=== PATIENT | female | born 1945 | race Caucasian/White ===

== ENCOUNTER 2022-01-14 22:50 | Inpatient (IN) | payer MEDICARE ==
[~2022-01-14] VITALS: Ht 175.3 cm; Wt 154.2 kg
[2022-01-14] MEDS ORDERED: PIPERACILLIN/TAZOBACTAM 3.375 GM in SODIUM CHLORIDE 0.9% 50ML 50 ML IV STA (22:53)
[2022-01-14] MEDS ORDERED: Vancomycin IV 1 GM in SODIUM CHLORIDE 0.9% 250ML 250 ML IV STA (22:53)
[2022-01-14] MEDS ORDERED: SODIUM CHLORIDE 0.9% 1000ML 1,000 ML IV STA (22:55)
[2022-01-14 23:25] LABS: BASOPHILS # (AUTO) 0.1 (0.0-0.1); BASOPHILS % 0.3 % (0.0-1.0); EOSINOPHILS % 0.2 % (0.0-6.0); HEMOGLOBIN 11.6 g/dL (12.0-16.0); LYMPHOCYTES # (AUTO) 2.1 (1.0-3.2); LYMPHOCYTES % 12.6 % (18.0-39.1); MEAN CORPUSCULAR HEMOGLOBIN 27.6 pg (28-32); MEAN CORPUSCULAR HGB CONC 32.2 g/dL (31-35); MEAN CORPUSCULAR VOLUME 85.5 fL (81-99); MONOCYTES # (AUTO) 1.5 (0.2-0.8); MONOCYTES % 8.9 % (4.4-11.3); NEUTROPHILS # (AUTO) 12.9 (2.1-6.9); NEUTROPHILS % 77.6 % (38.7-80.0); PLATELET COUNT 324 x10e3/uL (140-360); RED BLOOD COUNT 4.21 x10e6/uL (3.6-5.1); RED CELL DISTRIBUTION WIDTH 15.4 % (11.7-14.4)
[2022-01-14 23:30] LABS: INR 1.23; PARTIAL THROMBOPLASTIN TIME 33.5 seconds (23.8-35.5); PROTHROMBIN TIME 16.6 seconds (11.9-14.5)
[2022-01-14] MEDS ORDERED: ERTAPENEM 1 GM in SODIUM CHLORIDE 0.9% 50ML 50 ML IV ONE (23:30)
[2022-01-14 23:37] LABS: ALBUMIN 3.2 g/dL (3.5-5.0); ALBUMIN/GLOBULIN RATIO 0.8 (0.8-2.0); ANION GAP 10.1 mmol/L (8-16); CALCIUM 9.6 mg/dL (8.4-10.2); CREATININE, SERUM 0.8 mg/dL (0.57-1.11); POTASSIUM 4.1 mmol/L (3.5-5.1)
[2022-01-14 23:43] LABS: CREATINE KINASE MB 2.4 ng/mL (0-5.0)
[2022-01-15] VITALS (9 sets, daily range): BP systolic 108–162; BP diastolic 44–99
[2022-01-15] MEDS ORDERED: CEFTRIAXONE 1 GM in SODIUM CHLORIDE 0.9% 50ML 50 ML IV ONE ×2
[2022-01-15 00:01] LABS: B-TYPE NATRIURETIC PEPTIDE2 520.3 pg/mL (0-100)
[2022-01-15] MEDS ORDERED: SODIUM CHLORIDE 0.9% 50ML 50 ML ONE (00:06)
[2022-01-15] MEDS ORDERED: ERTAPENEM 1 GM VIAL ONE (00:06)
[2022-01-15] MEDS ORDERED: CEFTRIAXONE 1 GM VIAL ONE (00:10)
[2022-01-15 00:35] LABS: CLARITY,URINE CLEAR (CLEAR); COLOR,URINE STRAW (YELLOW); LEUKOCYTE ESTERASE ,URINE TRACE (NEGATIVE); NITRITE,URINE NEGATIVE (NEGATIVE)
[2022-01-15 00:36] LABS: BACTERIA,URINE MANY /HPF; EPITHELIAL CELLS,URINE FEW /LPF; KETONES,URINE NEGATIVE (NEGATIVE); PROTEIN,URINE DIPSTICK NEGATIVE (NEGATIVE); URINE UROBILINOGEN 0.2 mg/dL (0.2 - 1)
[2022-01-15] MEDS ORDERED: ONDANSETRON HCL INJ 2MG/ML 2ML 2 MG/ML VIAL IV PRN (01:30)
[2022-01-15] MEDS ORDERED: Morphine 2mg Syringe 2 MG/ML SYR IV PRN (01:30)
[2022-01-15] MEDS: SODIUM CHLORIDE 0.9% 1000ML 1,000 ML IV SCH ×2 (04:56→08:26)
[2022-01-15] MEDS ORDERED: PNEUMOCOCCAL VACCINE POLYVALENT 23 MCG/0.5 ML VIAL IM SCH (05:30)
[2022-01-15] MEDS ORDERED: INFLUENZA VIRUS VAC SPLIT INJ 0.5 ML SYR IM SCH (05:30)
[2022-01-15] MEDS ORDERED: GABAPENTIN300 MG PO (06:54)
[2022-01-15] MEDS ORDERED: ADMELOG100 UNIT/1 (06:54)
[2022-01-15] MEDS ORDERED: VITAMIN D250 MCG PO (06:54)
[2022-01-15] MEDS ORDERED: ACIDOPHILUS1 EAC1 PO (06:54)
[2022-01-15] MEDS ORDERED: SENNA LAX8.6 MG PO (06:54)
[2022-01-15] MEDS ORDERED: DICLOFENAC SOD100 G1 TP (06:54)
[2022-01-15] MEDS ORDERED: INSULIN GL100 UNIT/2 SQ (06:54)
[2022-01-15] MEDS ORDERED: ZOLOFT50 MG PO (06:54)
[2022-01-15] MEDS ORDERED: ASPIRIN81 MG PO (06:54)
[2022-01-15] MEDS ORDERED: GLUCAGON EMERGEN1 MG (06:54)
[2022-01-15] MEDS ORDERED: POTASSIUM CHLO20 ME1 PO (06:54)
[2022-01-15] MEDS ORDERED: POLYETHYLENE GL17 GM PO (06:54)
[2022-01-15] MEDS ORDERED: ELIQUIS5 MG PO (06:54)
[2022-01-15] MEDS ORDERED: FLECAINIDE ACE100 MG PO (06:54)
[2022-01-15] MEDS ORDERED: AMIODARONE HCL200 MG PO (06:54)
[2022-01-15] MEDS ORDERED: METOPROLOL TART50 MG PO (06:54)
[2022-01-15] MEDS ORDERED: ULTRAM50 MG PO (06:54)
[2022-01-15] MEDS ORDERED: LASIX80 MG PO (06:54)
[2022-01-15] MEDS ORDERED: LEVOTHYROXINE75 MCG PO (06:54)
[2022-01-15] MEDS ORDERED: DEXTROSE 50% SYRINGE 50 ML IV ONE (07:21)
[2022-01-15 09:24] LABS: CREATINE KINASE MB 2.6 ng/mL (0-5.0)
[2022-01-15] MEDS ORDERED: CEFTRIAXONE 1 GM in SODIUM CHLORIDE 0.9% 50ML 50 ML IV SCH (09:30)
[2022-01-15 09:32] LABS: BASOPHILS # (AUTO) 0.1 (0.0-0.1); BASOPHILS % 0.5 % (0.0-1.0); EOSINOPHILS # (AUTO) 0.3 (0.0-0.4); EOSINOPHILS % 1.5 % (0.0-6.0); HEMATOCRIT 32.7 % (34.2-44.1); HEMOGLOBIN 10.3 g/dL (12.0-16.0); LYMPHOCYTES # (AUTO) 2.8 (1.0-3.2); LYMPHOCYTES % 16.7 % (18.0-39.1); MEAN CORPUSCULAR HEMOGLOBIN 27.7 pg (28-32); MEAN CORPUSCULAR HGB CONC 31.5 g/dL (31-35); MEAN CORPUSCULAR VOLUME 87.9 fL (81-99); MONOCYTES % 11.7 % (4.4-11.3); NEUTROPHILS # (AUTO) 11.5 (2.1-6.9); NEUTROPHILS % 69.3 % (38.7-80.0); PLATELET COUNT 261 x10e3/uL (140-360); RED BLOOD COUNT 3.72 x10e6/uL (3.6-5.1); RED CELL DISTRIBUTION WIDTH 15.4 % (11.7-14.4)
[2022-01-15 09:46] LABS: ANION GAP 10.1 mmol/L (8-16); CALCIUM 8.9 mg/dL (8.4-10.2); CREATININE, SERUM 0.77 mg/dL (0.57-1.11); POTASSIUM 4.1 mmol/L (3.5-5.1)
[2022-01-15] MEDS ORDERED: TRAMADOL HCL 50 MG TAB PO PRN (10:30)
[2022-01-15] MEDS ORDERED: DEXTROSE 50% SYRINGE 50 ML IV PRN (10:45)
[2022-01-15] MEDS: INSULIN REGULAR, HUMAN 100 UNIT/1 ML SQ SCH ×3 (11:30→20:46)
[2022-01-15] MEDS ORDERED: FUROSEMIDE INJ 10 MG/ML 4 ML VIAL IV ONE (12:45)
[2022-01-15] MEDS: CEFEPIME 1 GM in SODIUM CHLORIDE 0.9% 50ML 50 ML IV SCH ×2 (13:18→22:05)
[2022-01-15] MEDS: Vancomycin IV 1 GM in SODIUM CHLORIDE 0.9% 250ML 250 ML IV SCH ×2 (13:52→23:32)
[2022-01-15 15:26] LABS: CREATINE KINASE MB 2.4 ng/mL (0-5.0)
[2022-01-15] MEDS ORDERED: METOPROLOL TARTRATE 50 MG TAB PO SCH (17:00)
[2022-01-15] MEDS: APIXABAN 5 MG TABLET PO SCH (17:51)
[2022-01-15] MEDS: AMIODARONE HCL 200 MG TAB PO SCH (17:51)
[2022-01-15] MEDS: FLECAINIDE ACETATE 100 MG TAB PO SCH (17:52)
[2022-01-15] MEDS: FUROSEMIDE INJ 10 MG/ML 4 ML VIAL IV SCH (17:52)
[2022-01-15] MEDS: POLYETHYLENE GLYCOL 3350 17 GM PACK PO SCH (17:52)
[2022-01-16] VITALS (7 sets, daily range): BP systolic 86–140; BP diastolic 45–73
[2022-01-16] MEDS: Vancomycin IV 1 GM in SODIUM CHLORIDE 0.9% 250ML 250 ML IV SCH ×2 (00:40→11:30)
[2022-01-16 04:49] LABS: BASOPHILS # (AUTO) 0.1 (0.0-0.1); BASOPHILS % 0.4 % (0.0-1.0); EOSINOPHILS # (AUTO) 0.6 (0.0-0.4); EOSINOPHILS % 4.1 % (0.0-6.0); HEMATOCRIT 31.2 % (34.2-44.1); HEMOGLOBIN 9.8 g/dL (12.0-16.0); LYMPHOCYTES # (AUTO) 2.9 (1.0-3.2); LYMPHOCYTES % 21.7 % (18.0-39.1); MEAN CORPUSCULAR HEMOGLOBIN 27.8 pg (28-32); MEAN CORPUSCULAR HGB CONC 31.4 g/dL (31-35); MEAN CORPUSCULAR VOLUME 88.6 fL (81-99); MONOCYTES # (AUTO) 1.7 (0.2-0.8); MONOCYTES % 12.8 % (4.4-11.3); NEUTROPHILS # (AUTO) 8.2 (2.1-6.9); NEUTROPHILS % 60.7 % (38.7-80.0); PLATELET COUNT 253 x10e3/uL (140-360); RED BLOOD COUNT 3.52 x10e6/uL (3.6-5.1); RED CELL DISTRIBUTION WIDTH 15.8 % (11.7-14.4)
[2022-01-16 05:12] LABS: ANION GAP 8.8 mmol/L (8-16); CALCIUM 8.7 mg/dL (8.4-10.2); CREATININE, SERUM 0.87 mg/dL (0.57-1.11); POTASSIUM 3.8 mmol/L (3.5-5.1)
[2022-01-16] MEDS: FUROSEMIDE INJ 10 MG/ML 4 ML VIAL IV SCH ×2 (05:39→18:29)
[2022-01-16] MEDS: LEVOTHYROXINE SODIUM 75 MCG TAB PO SCH (05:40)
[2022-01-16] MEDS: INSULIN REGULAR, HUMAN 100 UNIT/1 ML SQ SCH ×4 (07:30→21:00)
[2022-01-16] MEDS: GABAPENTIN 300 MG CAP PO SCH (09:25)
[2022-01-16] MEDS: AMIODARONE HCL 200 MG TAB PO SCH ×2 (09:25→17:08)
[2022-01-16] MEDS: CEFEPIME 1 GM in SODIUM CHLORIDE 0.9% 50ML 50 ML IV SCH ×2 (09:25→22:53)
[2022-01-16] MEDS: APIXABAN 5 MG TABLET PO SCH ×2 (09:25→17:08)
[2022-01-16] MEDS: POLYETHYLENE GLYCOL 3350 17 GM PACK PO SCH ×2 (09:25→17:36)
[2022-01-16] MEDS: ASPIRIN 81 MG CHEW TAB PO SCH (09:25)
[2022-01-16] MEDS: SERTRALINE HCL 50 MG TAB PO SCH (09:26)
[2022-01-16] MEDS: FLECAINIDE ACETATE 100 MG TAB PO SCH ×2 (09:27→17:08)
[2022-01-16] MEDS ORDERED: ONDANSETRON HCL 4 MG ORAL DISINTEGRATING TAB PO PRN (11:30)
[2022-01-17] VITALS (9 sets, daily range): BP systolic 113–144; BP diastolic 41–62
[2022-01-17 04:56] LABS: BASOPHILS # (AUTO) 0.1 (0.0-0.1); BASOPHILS % 0.4 % (0.0-1.0); EOSINOPHILS # (AUTO) 0.6 (0.0-0.4); EOSINOPHILS % 4.8 % (0.0-6.0); HEMATOCRIT 30.4 % (34.2-44.1); HEMOGLOBIN 9.6 g/dL (12.0-16.0); LYMPHOCYTES # (AUTO) 2.1 (1.0-3.2); LYMPHOCYTES % 15.9 % (18.0-39.1); MEAN CORPUSCULAR HEMOGLOBIN 27.8 pg (28-32); MEAN CORPUSCULAR HGB CONC 31.6 g/dL (31-35); MEAN CORPUSCULAR VOLUME 88.1 fL (81-99); MONOCYTES # (AUTO) 1.2 (0.2-0.8); MONOCYTES % 8.8 % (4.4-11.3); NEUTROPHILS # (AUTO) 9.4 (2.1-6.9); NEUTROPHILS % 69.7 % (38.7-80.0); PLATELET COUNT 285 x10e3/uL (140-360); RED BLOOD COUNT 3.45 x10e6/uL (3.6-5.1); RED CELL DISTRIBUTION WIDTH 15.7 % (11.7-14.4)
[2022-01-17 05:22] LABS: ANION GAP 10.8 mmol/L (8-16); CALCIUM 8.5 mg/dL (8.4-10.2); CREATININE, SERUM 0.94 mg/dL (0.57-1.11); POTASSIUM 3.8 mmol/L (3.5-5.1)
[2022-01-17] MEDS: FUROSEMIDE INJ 10 MG/ML 4 ML VIAL IV SCH (05:30)
[2022-01-17] MEDS: LEVOTHYROXINE SODIUM 75 MCG TAB PO SCH (05:30)
[2022-01-17] MEDS: INSULIN REGULAR, HUMAN 100 UNIT/1 ML SQ SCH ×4 (07:30→20:27)
[2022-01-17] MEDS: AMIODARONE HCL 200 MG TAB PO SCH ×2 (09:00→17:50)
[2022-01-17] MEDS: POLYETHYLENE GLYCOL 3350 17 GM PACK PO SCH ×2 (09:00→17:50)
[2022-01-17] MEDS: APIXABAN 5 MG TABLET PO SCH ×2 (09:00→17:50)
[2022-01-17] MEDS: FLECAINIDE ACETATE 100 MG TAB PO SCH ×2 (09:00→17:51)
[2022-01-17] MEDS: ASPIRIN 81 MG CHEW TAB PO SCH (09:00)
[2022-01-17] MEDS: CEFEPIME 1 GM in SODIUM CHLORIDE 0.9% 50ML 50 ML IV SCH ×2 (09:00→20:26)
[2022-01-17] MEDS: SERTRALINE HCL 50 MG TAB PO SCH (09:00)
[2022-01-17] MEDS: GABAPENTIN 300 MG CAP PO SCH (09:00)
[2022-01-17] MEDS: Vancomycin IV 1 GM in SODIUM CHLORIDE 0.9% 250ML 250 ML IV SCH ×2 (11:00→23:33)
[2022-01-18 04:00] VITALS: BP 147/54
[2022-01-18 05:15] LABS: CALCIUM 8.7 mg/dL (8.4-10.2); CREATININE, SERUM 0.82 mg/dL (0.57-1.11)
[2022-01-18] MEDS: LEVOTHYROXINE SODIUM 75 MCG TAB PO SCH (05:45)
[2022-01-18] MEDS: INSULIN REGULAR, HUMAN 100 UNIT/1 ML SQ SCH ×4 (07:30→20:56)
[2022-01-18 08:00] VITALS: BP 147/54
[2022-01-18 08:56] VITALS: BP 159/66
[2022-01-18 08:58] LABS: CREATINE KINASE 45 IU/L (29-168)
[2022-01-18] MEDS ORDERED: FUROSEMIDE INJ 10 MG/ML 4 ML VIAL IV SCH (09:00)
[2022-01-18] MEDS: APIXABAN 5 MG TABLET PO SCH ×2 (09:00→16:30)
[2022-01-18] MEDS: POLYETHYLENE GLYCOL 3350 17 GM PACK PO SCH ×2 (09:00→16:30)
[2022-01-18] MEDS: SERTRALINE HCL 50 MG TAB PO SCH (09:00)
[2022-01-18] MEDS: ASPIRIN 81 MG CHEW TAB PO SCH (09:00)
[2022-01-18] MEDS: FLECAINIDE ACETATE 100 MG TAB PO SCH ×2 (09:00→16:30)
[2022-01-18] MEDS: CEFEPIME 1 GM in SODIUM CHLORIDE 0.9% 50ML 50 ML IV SCH ×2 (09:00→20:55)
[2022-01-18] MEDS: AMIODARONE HCL 200 MG TAB PO SCH ×2 (09:00→16:30)
[2022-01-18] MEDS: GABAPENTIN 300 MG CAP PO SCH (09:00)
[2022-01-18] MEDS: Vancomycin IV 1 GM in SODIUM CHLORIDE 0.9% 250ML 250 ML IV SCH (10:59)
[2022-01-18 12:08] VITALS: BP 105/90
[2022-01-18] MEDS: FUROSEMIDE INJ 10 MG/ML 4 ML VIAL IV SCH (16:30)
[2022-01-18] MEDS ORDERED: METOLAZONE 5 MG TAB PO ONE (16:30)
[2022-01-18 16:48] VITALS: BP 160/63
[2022-01-18 20:00] VITALS: BP 158/59
[2022-01-19] VITALS (7 sets, daily range): BP systolic 104–165; BP diastolic 46–66
[2022-01-19] MEDS: Vancomycin IV 1 GM in SODIUM CHLORIDE 0.9% 250ML 250 ML IV SCH ×2 (00:07→11:00)
[2022-01-19 05:08] LABS: BASOPHILS # (AUTO) 0.1 (0.0-0.1); BASOPHILS % 0.5 % (0.0-1.0); EOSINOPHILS # (AUTO) 0.8 (0.0-0.4); EOSINOPHILS % 5.9 % (0.0-6.0); HEMATOCRIT 33.5 % (34.2-44.1); HEMOGLOBIN 10.7 g/dL (12.0-16.0); LYMPHOCYTES # (AUTO) 2.2 (1.0-3.2); MEAN CORPUSCULAR HEMOGLOBIN 28.2 pg (28-32); MEAN CORPUSCULAR HGB CONC 31.9 g/dL (31-35); MEAN CORPUSCULAR VOLUME 88.2 fL (81-99); MONOCYTES # (AUTO) 1.2 (0.2-0.8); MONOCYTES % 9.4 % (4.4-11.3); NEUTROPHILS # (AUTO) 8.8 (2.1-6.9); NEUTROPHILS % 66.7 % (38.7-80.0); PLATELET COUNT 337 x10e3/uL (140-360); RED CELL DISTRIBUTION WIDTH 15.2 % (11.7-14.4)
[2022-01-19] MEDS: LEVOTHYROXINE SODIUM 75 MCG TAB PO SCH (05:11)
[2022-01-19 05:25] LABS: ALBUMIN 2.7 g/dL (3.5-5.0); ALBUMIN/GLOBULIN RATIO 0.7 (0.8-2.0); CREATININE, SERUM 0.94 mg/dL (0.57-1.11)
[2022-01-19] MEDS ORDERED: PANTOPRAZOLE SOD 40 MG TABEC PO SCH (07:30)
[2022-01-19] MEDS: POLYETHYLENE GLYCOL 3350 17 GM PACK PO SCH ×2 (09:00→17:40)
[2022-01-19] MEDS: GABAPENTIN 300 MG CAP PO SCH (09:00)
[2022-01-19] MEDS: CEFEPIME 1 GM in SODIUM CHLORIDE 0.9% 50ML 50 ML IV SCH (09:00)
[2022-01-19] MEDS: ASPIRIN 81 MG CHEW TAB PO SCH (09:00)
[2022-01-19] MEDS: FUROSEMIDE INJ 10 MG/ML 4 ML VIAL IV SCH ×2 (09:00→17:40)
[2022-01-19] MEDS: APIXABAN 5 MG TABLET PO SCH ×2 (09:00→17:40)
[2022-01-19] MEDS: FLECAINIDE ACETATE 100 MG TAB PO SCH ×2 (09:00→17:41)
[2022-01-19] MEDS: AMIODARONE HCL 200 MG TAB PO SCH ×2 (09:00→17:40)
[2022-01-19] MEDS: SERTRALINE HCL 50 MG TAB PO SCH (09:00)
[2022-01-19] MEDS: INSULIN REGULAR, HUMAN 100 UNIT/1 ML SQ SCH ×3 (11:30→17:43)
[2022-01-19] MEDS ORDERED: ALBUTEROL/IPRATROPIUM 3 ML NEB ONE (16:51)
== END 2022-01-19 21:19 | DRG 871 ==
LOC: ER 22:55 → ERHOLD 01-15 01:32 → MED/SURG2 01-15 03:47
PROC: 3E03329 Introduction of Other Anti-infective into Peripheral Vein, Percutaneous Approach (ICD-10-PCS; principal; 2022-01-15)
PROC: 5A0935A Assistance with Respiratory Ventilation, Less than 24 Consecutive Hours, High Flow/Velocity Cannula (ICD-10-PCS; 2022-01-16)
DX: A41.9 Sepsis, unspecified organism (principal); J96.01 Acute respiratory failure with hypoxia; I50.33 Acute on chronic diastolic (congestive) heart failure; J15.6 Pneumonia due to other Gram-negative bacteria; N39.0 Urinary tract infection, site not specified; Z68.43 Body mass index [BMI] 50.0-59.9, adult; J44.0 Chronic obstructive pulmonary disease with (acute) lower respiratory infection; I11.0 Hypertensive heart disease with heart failure; R65.20 Severe sepsis without septic shock; I48.0 Paroxysmal atrial fibrillation; E66.01 Morbid (severe) obesity due to excess calories; E03.9 Hypothyroidism, unspecified; M19.90 Unspecified osteoarthritis, unspecified site; E11.649 Type 2 diabetes mellitus with hypoglycemia without coma; E11.42 Type 2 diabetes mellitus with diabetic polyneuropathy; K59.09 Other constipation; Z88.0 Allergy status to penicillin; Z91.018 Allergy to other foods; Z86.16 Personal history of COVID-19; Z82.49 Family history of ischemic heart disease and other diseases of the circulatory system; Z83.3 Family history of diabetes mellitus; D64.9 Anemia, unspecified; E78.00 Pure hypercholesterolemia, unspecified; Z79.82 Long term (current) use of aspirin; Z79.4 Long term (current) use of insulin
CPT/HCPCS: 36415; 51700; 71045; 71046; 76705; 80048; 80053; 80202; 81001; 82550; 82553; 82948; 83605; 83880; 84443; 84484; 85025; 85610; 85730; 87040; 87086; 87186; 93005; 93306; 94799; 97139; 99251; 99285; J0692; J0696; J1335; J1817; J1940; J3370; J7030; J7050; J7799; U0002

== ENCOUNTER 2024-09-20 04:11 | Inpatient (IN) | payer MEDICARE ==
[2024-09-20] VITALS (28 sets, daily range): BP systolic 99–178; BP diastolic 40–116; PULSE 56–79; RESP 14–32; TEMP 98.3–99.9; O2SAT 91–100
[~2024-09-20] VITALS: Ht 175.3 cm; Wt 131.3 kg
[~2024-09-20 04:11] MED LIST: ACIDOPHILUS1 EAC1 PO; ADMELOG100 UNIT/1; AMIODARONE HCL200 MG PO; ASPIRIN81 MG PO; DICLOFENAC SOD100 G1 TP; ELIQUIS5 MG PO; FLECAINIDE ACE100 MG PO; GABAPENTIN300 MG PO; GLUCAGON EMERGEN1 MG; INSULIN GL100 UNIT/2 SQ; LASIX80 MG PO; LEVOTHYROXINE75 MCG PO; METOPROLOL TART50 MG PO; POLYETHYLENE GL17 GM PO; POTASSIUM CHLO20 ME1 PO; SENNA LAX8.6 MG PO; ULTRAM50 MG PO; VITAMIN D250 MCG PO; ZOLOFT50 MG PO
[2024-09-20 04:44] LABS: ABG PH 7.38 (7.35-7.45)
[2024-09-20 04:45] LABS: ABG HCO3 25 mmol/L (22-26); ABG PCO2 42 mmHg (35-45); ABG PO2 144 mmHg (80-105); ABG TCO2 26
[2024-09-20 05:08] LABS: BASOPHILS # (AUTO) 0.1 (0.0-0.1); BASOPHILS % 0.3 % (0.0-1.0); EOSINOPHILS % 0.1 % (0.0-6.0); HEMATOCRIT 34.9 % (34.2-44.1); HEMOGLOBIN 9.9 g/dL (12.0-16.0); LYMPHOCYTES # (AUTO) 1.2 (1.0-3.2); LYMPHOCYTES % 5.4 % (18.0-39.1); MEAN CORPUSCULAR HEMOGLOBIN 21.2 pg (28-32); MEAN CORPUSCULAR HGB CONC 28.4 g/dL (31-35); MEAN CORPUSCULAR VOLUME 74.7 fL (81-99); MONOCYTES # (AUTO) 1.1 (0.2-0.8); MONOCYTES % 5.1 % (4.4-11.3); NEUTROPHILS # (AUTO) 19.8 (2.1-6.9); NEUTROPHILS % 88.6 % (38.7-80.0); PLATELET COUNT 406 x10e3/uL (140-360); RED BLOOD COUNT 4.67 x10e6/uL (3.6-5.1); RED CELL DISTRIBUTION WIDTH 29.1 % (11.7-14.4); WHITE BLOOD COUNT 22.34 x10e3/uL (4.8-10.8)
[2024-09-20] MEDS: Vancomycin IV 1 GM in SODIUM CHLORIDE 0.9% 250ML 250 ML IV ONE ×2 (05:10→19:02)
[2024-09-20] MEDS: ACETAMINOPHEN 1000 MG/100 ML IV STA (05:10)
[2024-09-20 05:14] LABS: INR 1.15; PROTHROMBIN TIME 15.4 seconds (11.9-14.5)
[2024-09-20 05:15] LABS: PARTIAL THROMBOPLASTIN TIME 29.8 seconds (23.8-35.5)
[2024-09-20 05:20] LABS: CLARITY,URINE SL CLOUDY (CLEAR); COLOR,URINE YELLOW (YELLOW); LEUKOCYTE ESTERASE ,URINE SMALL (NEGATIVE); NITRITE,URINE POSITIVE (NEGATIVE); PH,URINE 5.5 (5 - 7)
[2024-09-20 05:21] LABS: BILIRUBIN,URINE NEGATIVE (NEGATIVE); GLUCOSE, URINE NEGATIVE (NEGATIVE); KETONES,URINE 1+ (NEGATIVE); PROTEIN,URINE DIPSTICK 2+ (NEGATIVE); URINE UROBILINOGEN 0.2 mg/dL (0.2 - 1)
[2024-09-20 05:22] LABS: ALBUMIN 2.9 g/dL (3.5-5.0); ALBUMIN/GLOBULIN RATIO 0.7 (0.8-2.0); ANION GAP 14.3 mmol/L (8-16); BACTERIA,URINE MANY /HPF; BILIRUBIN,TOTAL 0.6 mg/dL (0.2-1.2); CALCIUM 8.7 mg/dL (8.4-10.2); CREATININE, SERUM 0.91 mg/dL (0.57-1.11); EPITHELIAL CELLS,URINE FEW /LPF; POTASSIUM 4.3 mmol/L (3.5-5.1); TOTAL PROTEIN 6.9 g/dL (6.5-8.1)
[2024-09-20 05:28] LABS: TROPONIN I 0.014 ng/mL (0-0.300)
[2024-09-20 05:40] LABS: B-TYPE NATRIURETIC PEPTIDE2 538.7 pg/mL (0-100)
[2024-09-20] MEDS ORDERED: LACTOBACILLUS ACIDOPHILUS CAPSULE PO PRN (08:15)
[2024-09-20] MEDS ORDERED: ZIPRASIDONE 20 MG VIAL IM ONE (08:17)
[2024-09-20] MEDS: ZIPRASIDONE 20 MG VIAL IM STA (08:28)
[2024-09-20] MEDS: MIDAZOLAM HCL 2 MG/2 ML VIAL IV STA (08:29)
[2024-09-20] MEDS: FUROSEMIDE INJ 10 MG/ML 4 ML VIAL IV ONE (08:34)
[2024-09-20] MEDS: SENNOSIDES 8.6 MG TAB PO SCH (09:00)
[2024-09-20] MEDS: POLYETHYLENE GLYCOL 3350 17 GM PACK PO SCH (09:00)
[2024-09-20] MEDS: APIXABAN 5 MG TABLET PO SCH (09:00)
[2024-09-20] MEDS: AMIODARONE HCL 200 MG TAB PO SCH (09:00)
[2024-09-20] MEDS: LEVOTHYROXINE SODIUM 75 MCG TAB PO SCH (09:00)
[2024-09-20] MEDS: ASPIRIN 81 MG CHEW TAB PO SCH (09:00)
[2024-09-20 10:40] LABS: ANISOCYTOSIS SLIGHT; LYMPHOCYTES % (MANUAL) 9 % (19-48); MICROCYTOSIS SLIGHT; MONOCYTES % (MANUAL) 5 % (3.4-9.0); NEUTROPHILS % (MANUAL) 86 % (40-74); PLATELET ESTIMATE ADEQUATE; PLATELET MORPHOLOGY COMMENT NORMAL
[2024-09-20] MEDS ORDERED: ACETAMINOPHEN 1000 MG/100 ML IV PRN (11:00)
[2024-09-20] MEDS: INSULIN LISPRO 100 UNIT/1 ML 3ML VIAL SQ SCH (12:16)
[2024-09-20 13:21] LABS: TROPONIN I 0.017 ng/mL (0-0.300)
[2024-09-20] MEDS ORDERED: CLARITIN-D 241 EACH PO (13:30)
[2024-09-20] MEDS ORDERED: FAMOTIDINE20 MG PO (13:30)
[2024-09-20] MEDS ORDERED: FLECAINIDE ACET50 MG PO (13:32)
[2024-09-20] MEDS ORDERED: CLARITIN10 MG PO (13:36)
[2024-09-20] MEDS ORDERED: WATER STERILE 10 ML VIAL ONE (13:40)
[2024-09-20] MEDS ORDERED: MIDAZOLAM HCL 2 MG/2 ML VIAL ONE (13:40)
[2024-09-20] MEDS ORDERED: HUMALOG100 UNIT/3 SC (13:47)
[2024-09-20] MEDS ORDERED: ONDANSETRON ODT8 MG PO (14:02)
[2024-09-20] MEDS ORDERED: LORAZEPAM INJ 2 MG/ML VIAL IV ONE (14:15)
[2024-09-20] MEDS: LORAZEPAM INJ 2 MG/ML VIAL IV ONE ×2 (14:22→14:28)
[2024-09-20] MEDS: SODIUM CHLORIDE FLUSH 10 ML SYR INJ PRN (14:33)
[2024-09-20] MEDS ORDERED: LOSARTAN POTASS25 MG PO (15:06)
[2024-09-20] MEDS ORDERED: BASAGLAR K100 UNIT/1 SC (15:13)
[2024-09-20] MEDS ORDERED: CARVEDILOL3.125 MG PO (15:14)
[2024-09-20] MEDS: FLECAINIDE ACETATE 100 MG TAB PO SCH (17:12)
[2024-09-20] MEDS: CARVEDILOL 3.125 MG TAB PO SCH (17:15)
[2024-09-20] MEDS: ZIPRASIDONE 20 MG VIAL IM ONE (19:34)
[2024-09-20] MEDS: INSULIN GLARGINE 100 UNITS/ML VIAL SQ SCH (20:45)
[2024-09-20] MEDS: MUPIROCIN 2% OINT 22 GM TUBE TOP SCH (21:10)
[2024-09-21] VITALS (23 sets, daily range): BP systolic 73–181; BP diastolic 47–81; PULSE 58–83; RESP 13–29; TEMP 97.9–99.3; O2SAT 90–100
[2024-09-21] MEDS: Vancomycin IV 1 GM in SODIUM CHLORIDE 0.9% 250ML 250 ML IV ONE (04:25)
[2024-09-21 07:27] LABS: BASOPHILS # (AUTO) 0.1 (0.0-0.1); BASOPHILS % 0.3 % (0.0-1.0); EOSINOPHILS # (AUTO) 0.2 (0.0-0.4); EOSINOPHILS % 0.8 % (0.0-6.0); HEMATOCRIT 31.7 % (34.2-44.1); LYMPHOCYTES # (AUTO) 1.4 (1.0-3.2); MEAN CORPUSCULAR HEMOGLOBIN 21.4 pg (28-32); MEAN CORPUSCULAR HGB CONC 28.4 g/dL (31-35); MEAN CORPUSCULAR VOLUME 75.3 fL (81-99); MONOCYTES # (AUTO) 1.5 (0.2-0.8); MONOCYTES % 7.5 % (4.4-11.3); NEUTROPHILS % 83.7 % (38.7-80.0); PLATELET COUNT 373 x10e3/uL (140-360); RED BLOOD COUNT 4.21 x10e6/uL (3.6-5.1); RED CELL DISTRIBUTION WIDTH 28.9 % (11.7-14.4); WHITE BLOOD COUNT 20.32 x10e3/uL (4.8-10.8)
[2024-09-21 07:49] LABS: ALBUMIN 2.8 g/dL (3.5-5.0); ALBUMIN/GLOBULIN RATIO 0.8 (0.8-2.0); BILIRUBIN,TOTAL 0.6 mg/dL (0.2-1.2); CALCIUM 8.8 mg/dL (8.4-10.2); CREATININE, SERUM 0.82 mg/dL (0.57-1.11); TOTAL PROTEIN 6.4 g/dL (6.5-8.1)
[2024-09-21 07:55] LABS: TROPONIN I 0.016 ng/mL (0-0.300)
[2024-09-21] MEDS: FUROSEMIDE INJ 10 MG/ML 2 ML VIAL IV SCH (08:27)
[2024-09-21] MEDS ORDERED: LORAZEPAM INJ 2 MG/ML VIAL IV ONE (15:00)
[2024-09-21] MEDS: LORAZEPAM INJ 2 MG/ML VIAL IV ONE ×2 (15:25→15:26)
[2024-09-21] MEDS ORDERED: Vancomycin IV 1 GM in SODIUM CHLORIDE 0.9% 250ML 250 ML IV SCH (18:00)
[2024-09-21] MEDS ORDERED: NYSTATIN 15 GM POWDER UD BTL TOP PRN (19:45)
[2024-09-22] VITALS (39 sets, daily range): BP systolic 66–156; BP diastolic 43–101; PULSE 55–76; RESP 14–39; TEMP 97.7–98.9; O2SAT 92–100
[2024-09-22 06:55] LABS: BASOPHILS # (AUTO) 0.1 (0.0-0.1); BASOPHILS % 0.5 % (0.0-1.0); EOSINOPHILS # (AUTO) 0.5 (0.0-0.4); EOSINOPHILS % 3.4 % (0.0-6.0); HEMATOCRIT 29.8 % (34.2-44.1); LYMPHOCYTES # (AUTO) 1.7 (1.0-3.2); LYMPHOCYTES % 11.8 % (18.0-39.1); MEAN CORPUSCULAR HEMOGLOBIN 21.4 pg (28-32); MEAN CORPUSCULAR HGB CONC 27.9 g/dL (31-35); MEAN CORPUSCULAR VOLUME 76.8 fL (81-99); MONOCYTES # (AUTO) 1.1 (0.2-0.8); MONOCYTES % 7.6 % (4.4-11.3); NEUTROPHILS # (AUTO) 10.9 (2.1-6.9); NEUTROPHILS % 76.3 % (38.7-80.0); PLATELET COUNT 352 x10e3/uL (140-360); RED BLOOD COUNT 3.88 x10e6/uL (3.6-5.1); RED CELL DISTRIBUTION WIDTH 28.5 % (11.7-14.4); WHITE BLOOD COUNT 14.35 x10e3/uL (4.8-10.8)
[2024-09-22 07:00] LABS: HEMOGLOBIN 8.3 g/dL (12.0-16.0)
[2024-09-22 07:11] LABS: ALBUMIN 2.5 g/dL (3.5-5.0); ALBUMIN/GLOBULIN RATIO 0.7 (0.8-2.0); ANION GAP 13.8 mmol/L (8-16); BILIRUBIN,TOTAL 0.6 mg/dL (0.2-1.2); CALCIUM 8.7 mg/dL (8.4-10.2); CREATININE, SERUM 0.79 mg/dL (0.57-1.11); POTASSIUM 3.8 mmol/L (3.5-5.1); TOTAL PROTEIN 5.9 g/dL (6.5-8.1)
[2024-09-22 09:34] LABS: ANISOCYTOSIS MARKED; HYPOCHROMASIA MODERATE; MICROCYTOSIS MODERATE; PLATELET ESTIMATE ADEQUATE; PLATELET MORPHOLOGY COMMENT NORMAL; RBC MORPHOLOGY COMMENT ABNORMAL
[2024-09-22 09:35] LABS: TARGET CELLS FEW
[2024-09-22] MEDS: MEROPENEM 1 GM in SODIUM CHLORIDE 0.9% 100 ML IV SCH (14:33)
[2024-09-22] MEDS: BALSAM PERU/CASTOR OIL 60 GM OINT...G. TP SCH (17:00)
[2024-09-23] VITALS (45 sets, daily range): BP systolic 97–180; BP diastolic 42–88; PULSE 54–74; RESP 16–27; TEMP 97.9–99.7; O2SAT 93–100
[2024-09-23 06:41] LABS: BASOPHILS # (AUTO) 0.1 (0.0-0.1); BASOPHILS % 0.4 % (0.0-1.0); EOSINOPHILS # (AUTO) 0.5 (0.0-0.4); EOSINOPHILS % 4.3 % (0.0-6.0); HEMATOCRIT 28.6 % (34.2-44.1); LYMPHOCYTES # (AUTO) 1.8 (1.0-3.2); LYMPHOCYTES % 15.6 % (18.0-39.1); MEAN CORPUSCULAR HEMOGLOBIN 21.1 pg (28-32); MEAN CORPUSCULAR VOLUME 75.3 fL (81-99); MONOCYTES # (AUTO) 0.8 (0.2-0.8); MONOCYTES % 7.2 % (4.4-11.3); NEUTROPHILS # (AUTO) 8.2 (2.1-6.9); NEUTROPHILS % 71.8 % (38.7-80.0); PLATELET COUNT 371 x10e3/uL (140-360); RED CELL DISTRIBUTION WIDTH 28.8 % (11.7-14.4); WHITE BLOOD COUNT 11.43 x10e3/uL (4.8-10.8)
[2024-09-23 07:05] LABS: ALBUMIN 2.4 g/dL (3.5-5.0); ALBUMIN/GLOBULIN RATIO 0.7 (0.8-2.0); ANION GAP 12.6 mmol/L (8-16); BILIRUBIN,TOTAL 0.4 mg/dL (0.2-1.2); CALCIUM 8.6 mg/dL (8.4-10.2); CREATININE, SERUM 0.79 mg/dL (0.57-1.11); POTASSIUM 3.6 mmol/L (3.5-5.1)
[2024-09-23] MEDS: POTASSIUM CHLORIDE 20MEQ/100ML 100 ML IV ONE ×2 (10:36→10:49)
[2024-09-23] MEDS: ONDANSETRON HCL INJ 2MG/ML 2ML 2 MG/ML VIAL IV PRN (13:49)
[2024-09-24] VITALS (32 sets, daily range): BP systolic 88–159; BP diastolic 47–89; PULSE 57–75; RESP 16–25; TEMP 98.1–99.2; O2SAT 89–99
[2024-09-24 06:24] LABS: BASOPHILS # (AUTO) 0.1 (0.0-0.1); BASOPHILS % 0.5 % (0.0-1.0); EOSINOPHILS # (AUTO) 0.9 (0.0-0.4); EOSINOPHILS % 7.7 % (0.0-6.0); LYMPHOCYTES # (AUTO) 2.1 (1.0-3.2); LYMPHOCYTES % 18.9 % (18.0-39.1); MEAN CORPUSCULAR HEMOGLOBIN 21.5 pg (28-32); MEAN CORPUSCULAR HGB CONC 28.5 g/dL (31-35); MEAN CORPUSCULAR VOLUME 75.4 fL (81-99); MONOCYTES % 8.6 % (4.4-11.3); NEUTROPHILS # (AUTO) 7.1 (2.1-6.9); NEUTROPHILS % 63.8 % (38.7-80.0); PLATELET COUNT 341 x10e3/uL (140-360); RED BLOOD COUNT 3.58 x10e6/uL (3.6-5.1); WHITE BLOOD COUNT 11.11 x10e3/uL (4.8-10.8)
[2024-09-24 06:29] LABS: HEMOGLOBIN 7.7 g/dL (12.0-16.0)
[2024-09-24 06:56] LABS: ANION GAP 10.9 mmol/L (8-16); CALCIUM 8.4 mg/dL (8.4-10.2); CREATININE, SERUM 0.79 mg/dL (0.57-1.11); POTASSIUM 3.9 mmol/L (3.5-5.1)
[2024-09-24] MEDS ORDERED: FUROSEMIDE INJ 10 MG/ML 2 ML VIAL IV PRN (08:30)
[2024-09-24 09:20] LABS: % IRON SATURATION 7 % (15-50); IRON 22 ug/dL (50-170); TOTAL IRON BINDING CAPACITY 300 ug/dL (261-478); TRANSFERRIN 214 mg/dL (180-382)
[2024-09-24 09:45] LABS: FOLATE 9.5 ng/mL (7.0-15.4)
[2024-09-24 10:31] LABS: HYPOCHROMASIA MARKED; MICROCYTOSIS MODERATE; PLATELET ESTIMATE ADEQUATE; PLATELET MORPHOLOGY COMMENT NORMAL; RBC MORPHOLOGY COMMENT ABNORMAL
[2024-09-24 10:32] LABS: ANISOCYTOSIS MODERATE; POLYCHROMASIA FEW
[2024-09-24] MEDS: SODIUM CHLORIDE 0.9% 250ML 250 ML IV ONE (14:32)
[2024-09-25] VITALS (11 sets, daily range): BP systolic 109–191; BP diastolic 59–112; PULSE 56–73; RESP 16–22; TEMP 97.3–99.8; O2SAT 95–100
[2024-09-25 05:34] LABS: BASOPHILS # (AUTO) 0.1 (0.0-0.1); BASOPHILS % 0.7 % (0.0-1.0); EOSINOPHILS # (AUTO) 0.8 (0.0-0.4); EOSINOPHILS % 7.8 % (0.0-6.0); HEMATOCRIT 32.5 % (34.2-44.1); HEMOGLOBIN 9.5 g/dL (12.0-16.0); LYMPHOCYTES # (AUTO) 1.9 (1.0-3.2); LYMPHOCYTES % 18.9 % (18.0-39.1); MEAN CORPUSCULAR HEMOGLOBIN 22.4 pg (28-32); MEAN CORPUSCULAR HGB CONC 29.2 g/dL (31-35); MEAN CORPUSCULAR VOLUME 76.7 fL (81-99); MONOCYTES # (AUTO) 0.9 (0.2-0.8); MONOCYTES % 9.3 % (4.4-11.3); NEUTROPHILS # (AUTO) 6.4 (2.1-6.9); NEUTROPHILS % 62.8 % (38.7-80.0); PLATELET COUNT 356 x10e3/uL (140-360); RED BLOOD COUNT 4.24 x10e6/uL (3.6-5.1); RED CELL DISTRIBUTION WIDTH 27.1 % (11.7-14.4); WHITE BLOOD COUNT 10.11 x10e3/uL (4.8-10.8)
[2024-09-25 05:53] LABS: ALBUMIN 2.5 g/dL (3.5-5.0); ALBUMIN/GLOBULIN RATIO 0.7 (0.8-2.0); ANION GAP 11.1 mmol/L (8-16); BILIRUBIN,TOTAL 0.6 mg/dL (0.2-1.2); CALCIUM 8.7 mg/dL (8.4-10.2); CREATININE, SERUM 0.8 mg/dL (0.57-1.11); POTASSIUM 4.1 mmol/L (3.5-5.1); TOTAL PROTEIN 6.1 g/dL (6.5-8.1)
[2024-09-25 10:37] LABS: EOSINOPHILS % (MANUAL) 3 % (0-7); LYMPHOCYTES % (MANUAL) 17 % (19-48); MONOCYTES % (MANUAL) 8 % (3.4-9.0); NEUTROPHILS % (MANUAL) 72 % (40-74); PLATELET ESTIMATE ADEQUATE; PLATELET MORPHOLOGY COMMENT NORMAL
[2024-09-25 10:38] LABS: ANISOCYTOSIS SLIGHT; HYPOCHROMASIA SLIGHT; POIKILOCYTOSIS MODERATE; RBC MORPHOLOGY COMMENT ABNORMAL
[2024-09-25 10:39] LABS: OVALOCYTES FEW
[2024-09-25 10:57] LABS: ABG HCO3 25 mmol/L (22-26); ABG PCO2 42 mmHg (35-45); ABG PH 7.38 (7.35-7.45); ABG PO2 144 mmHg (80-105); ABG TCO2 26
[2024-09-25] MEDS: ENOXAPARIN SOD INJ 40 MG/0.4 ML SYR SC SCH (18:17)
[2024-09-26] VITALS (13 sets, daily range): BP systolic 139–183; BP diastolic 53–72; PULSE 58–81; RESP 18–22; TEMP 97.5–100.1; O2SAT 94–100
[2024-09-26] MEDS: SODIUM CHLORIDE 0.9% 250ML 250 ML ONE (22:14)
[2024-09-26] MEDS: METOPROLOL TARTRATE INJ 1 MG/ML VIAL IV PRN (22:17)
[2024-09-27] VITALS (10 sets, daily range): BP systolic 149–190; BP diastolic 59–83; PULSE 59–82; RESP 18–21; TEMP 97.6–98.3; O2SAT 94–100
[2024-09-27] MEDS: APIXABAN 5 MG TABLET PO SCH (09:56)
[2024-09-27] MEDS: LORAZEPAM INJ 2 MG/ML VIAL IV PRN (12:26)
[2024-09-27] MEDS: MEROPENEM 1 GM in SODIUM CHLORIDE 0.9% 100 ML IV SCH (14:22)
[2024-09-28] VITALS (9 sets, daily range): BP systolic 138–183; BP diastolic 41–115; PULSE 61–71; RESP 18–22; TEMP 97.5–97.9; O2SAT 95–100
[2024-09-28 06:46] LABS: BASOPHILS # (AUTO) 0.1 (0.0-0.1); BASOPHILS % 0.7 % (0.0-1.0); EOSINOPHILS # (AUTO) 0.5 (0.0-0.4); EOSINOPHILS % 4.1 % (0.0-6.0); HEMATOCRIT 33.3 % (34.2-44.1); HEMOGLOBIN 9.7 g/dL (12.0-16.0); LYMPHOCYTES # (AUTO) 1.8 (1.0-3.2); LYMPHOCYTES % 16.3 % (18.0-39.1); MEAN CORPUSCULAR HEMOGLOBIN 22.5 pg (28-32); MEAN CORPUSCULAR HGB CONC 29.1 g/dL (31-35); MEAN CORPUSCULAR VOLUME 77.3 fL (81-99); MONOCYTES % 8.7 % (4.4-11.3); NEUTROPHILS # (AUTO) 7.9 (2.1-6.9); NEUTROPHILS % 69.8 % (38.7-80.0); PLATELET COUNT 393 x10e3/uL (140-360); RED BLOOD COUNT 4.31 x10e6/uL (3.6-5.1); RED CELL DISTRIBUTION WIDTH 28.2 % (11.7-14.4); WHITE BLOOD COUNT 11.26 x10e3/uL (4.8-10.8)
[2024-09-28 06:59] LABS: ALBUMIN 2.6 g/dL (3.5-5.0); ALBUMIN/GLOBULIN RATIO 0.7 (0.8-2.0); BILIRUBIN,TOTAL 0.5 mg/dL (0.2-1.2); CALCIUM 8.8 mg/dL (8.4-10.2); CREATININE, SERUM 0.69 mg/dL (0.57-1.11); TOTAL PROTEIN 6.1 g/dL (6.5-8.1)
[2024-09-28] MEDS: PANTOPRAZOLE SOD 40 MG TABEC PO SCH (07:37)
[2024-09-29] VITALS (11 sets, daily range): BP systolic 142–169; BP diastolic 52–78; PULSE 54–67; RESP 18–22; TEMP 97.7–98.1; O2SAT 94–100
[2024-09-29] MEDS: MUPIROCIN 2% OINT 22 GM TUBE TOP SCH (16:31)
[2024-09-30] VITALS (9 sets, daily range): BP systolic 135–177; BP diastolic 56–75; PULSE 57–78; RESP 18–20; TEMP 97.3–97.9; O2SAT 96–100
[2024-09-30 05:47] LABS: BASOPHILS # (AUTO) 0.1 (0.0-0.1); BASOPHILS % 0.6 % (0.0-1.0); EOSINOPHILS # (AUTO) 0.4 (0.0-0.4); EOSINOPHILS % 3.6 % (0.0-6.0); HEMATOCRIT 32.1 % (34.2-44.1); HEMOGLOBIN 9.3 g/dL (12.0-16.0); LYMPHOCYTES # (AUTO) 2.2 (1.0-3.2); LYMPHOCYTES % 22.1 % (18.0-39.1); MEAN CORPUSCULAR HEMOGLOBIN 22.4 pg (28-32); MEAN CORPUSCULAR VOLUME 77.2 fL (81-99); MONOCYTES # (AUTO) 1.1 (0.2-0.8); MONOCYTES % 11.1 % (4.4-11.3); NEUTROPHILS # (AUTO) 6.1 (2.1-6.9); NEUTROPHILS % 62.2 % (38.7-80.0); PLATELET COUNT 346 x10e3/uL (140-360); RED BLOOD COUNT 4.16 x10e6/uL (3.6-5.1); RED CELL DISTRIBUTION WIDTH 28.5 % (11.7-14.4); WHITE BLOOD COUNT 9.84 x10e3/uL (4.8-10.8)
[2024-09-30 06:04] LABS: ANION GAP 11.9 mmol/L (8-16); CALCIUM 8.4 mg/dL (8.4-10.2); CREATININE, SERUM 0.67 mg/dL (0.57-1.11); POTASSIUM 3.9 mmol/L (3.5-5.1)
[2024-09-30] MEDS: DEXTROSE 50% SYRINGE 50 ML IV PRN (08:38)
[2024-09-30 08:59] LABS: ANISOCYTOSIS MARKED; HYPOCHROMASIA MODERATE; MICROCYTOSIS MODERATE; PLATELET ESTIMATE ADEQUATE; PLATELET MORPHOLOGY COMMENT NORMAL
[2024-10-01] VITALS (12 sets, daily range): BP systolic 109–197; BP diastolic 56–81; PULSE 62–77; RESP 18–24; TEMP 97.6–98.5; O2SAT 96–100
[2024-10-01] MEDS: ALBUTEROL SULF 0.083% NEB SOLN 3 ML NEB NEB PRN (01:07)
[2024-10-01] MEDS: ALBUTEROL/IPRATROPIUM 3 ML NEB ONE (12:24)
[2024-10-01] MEDS ORDERED: CLONIDINE HCL 0.1 MG TAB PO PRN (21:00)
[2024-10-02] VITALS (9 sets, daily range): BP systolic 127–168; BP diastolic 51–81; PULSE 63–78; RESP 19–21; TEMP 97.1–98.1; O2SAT 93–99
[2024-10-02] MEDS: LEVOTHYROXINE SODIUM 75 MCG TAB PO SCH (06:41)
[2024-10-02 07:25] LABS: BASOPHILS # (AUTO) 0.1 (0.0-0.1); BASOPHILS % 0.4 % (0.0-1.0); EOSINOPHILS # (AUTO) 0.3 (0.0-0.4); EOSINOPHILS % 2.5 % (0.0-6.0); HEMATOCRIT 33.5 % (34.2-44.1); HEMOGLOBIN 9.7 g/dL (12.0-16.0); LYMPHOCYTES # (AUTO) 2.3 (1.0-3.2); LYMPHOCYTES % 19.6 % (18.0-39.1); MEAN CORPUSCULAR HEMOGLOBIN 22.5 pg (28-32); MEAN CORPUSCULAR VOLUME 77.5 fL (81-99); NEUTROPHILS # (AUTO) 8.2 (2.1-6.9); NEUTROPHILS % 69.1 % (38.7-80.0); PLATELET COUNT 330 x10e3/uL (140-360); RED BLOOD COUNT 4.32 x10e6/uL (3.6-5.1); RED CELL DISTRIBUTION WIDTH 28.6 % (11.7-14.4); WHITE BLOOD COUNT 11.87 x10e3/uL (4.8-10.8)
[2024-10-02 07:47] LABS: ANION GAP 12.3 mmol/L (8-16); CALCIUM 8.6 mg/dL (8.4-10.2); CREATININE, SERUM 0.73 mg/dL (0.57-1.11); POTASSIUM 4.3 mmol/L (3.5-5.1)
[2024-10-03] VITALS (9 sets, daily range): BP systolic 142–194; BP diastolic 60–70; PULSE 57–76; RESP 18–22; TEMP 97.4–98.1; O2SAT 92–100
[2024-10-03] MEDS ORDERED: LASIX20 MG PO (14:15)
[2024-10-03] MEDS ORDERED: Insulin Glargine SQ (14:15)
[2024-10-03] MEDS ORDERED: MIRALAX17 GM PO (14:15)
[2024-10-03] MEDS ORDERED: SENOKOT8.6 MG PO (14:15)
[2024-10-03] MEDS ORDERED: Flecainide Acetate PO (14:15)
[2024-10-03] MEDS ORDERED: SYNTHROID75 MCG PO (14:15)
[2024-10-03] MEDS ORDERED: CIPRO500 MG PO (14:26)
== END 2024-10-03 19:40 | DRG 177 ==
LOC: ER 04:12 → ERHOLD 05:45 → ICU 07:50 → MED/SURG2 09-24 13:37
PROVIDERS: ADMIT Internal Medicine; ATTEND Internal Medicine
PROC: 5A09357 Assistance with Respiratory Ventilation, Less than 24 Consecutive Hours, Continuous Positive Airway Pressure (ICD-10-PCS; principal; 2024-09-20)
PROC: 02HV33Z Insertion of Infusion Device into Superior Vena Cava, Percutaneous Approach (ICD-10-PCS; 2024-09-20)
PROC: B548ZZA Ultrasonography of Superior Vena Cava, Guidance (ICD-10-PCS; 2024-09-20)
PROC: 4A033R1 Measurement of Arterial Saturation, Peripheral, Percutaneous Approach (ICD-10-PCS; 2024-09-20)
PROC: 4A033R1 Measurement of Arterial Saturation, Peripheral, Percutaneous Approach (ICD-10-PCS; 2024-09-20)
PROC: 5A09357 Assistance with Respiratory Ventilation, Less than 24 Consecutive Hours, Continuous Positive Airway Pressure (ICD-10-PCS; 2024-09-23)
PROC: 30233N1 Transfusion of Nonautologous Red Blood Cells into Peripheral Vein, Percutaneous Approach (ICD-10-PCS; 2024-09-24)
PROC: 02HV33Z Insertion of Infusion Device into Superior Vena Cava, Percutaneous Approach (ICD-10-PCS; 2024-09-25)
PROC: B548ZZA Ultrasonography of Superior Vena Cava, Guidance (ICD-10-PCS; 2024-09-25)
DX: J69.0 Pneumonitis due to inhalation of food and vomit (principal); G92.8 Other toxic encephalopathy; G93.41 Metabolic encephalopathy; I50.33 Acute on chronic diastolic (congestive) heart failure; J96.01 Acute respiratory failure with hypoxia; N39.0 Urinary tract infection, site not specified; Z16.12 Extended spectrum beta lactamase (ESBL) resistance; Z68.41 Body mass index [BMI] 40.0-44.9, adult; F03.911 Unspecified dementia, unspecified severity, with agitation; F05 Delirium due to known physiological condition; L97.429 Non-pressure chronic ulcer of left heel and midfoot with unspecified severity; Z16.24 Resistance to multiple antibiotics; N17.9 Acute kidney failure, unspecified; I13.0 Hypertensive heart and chronic kidney disease with heart failure and stage 1 through stage 4 chronic kidney disease, or unspecified chronic kidney disease; R62.7 Adult failure to thrive; B96.20 Unspecified Escherichia coli [E. coli] as the cause of diseases classified elsewhere; I11.0 Hypertensive heart disease with heart failure; E66.01 Morbid (severe) obesity due to excess calories; Z71.3 Dietary counseling and surveillance; Y95 Nosocomial condition; D63.8 Anemia in other chronic diseases classified elsewhere; I48.0 Paroxysmal atrial fibrillation; Z79.01 Long term (current) use of anticoagulants; E11.69 Type 2 diabetes mellitus with other specified complication; E11.22 Type 2 diabetes mellitus with diabetic chronic kidney disease; Z79.4 Long term (current) use of insulin; N18.9 Chronic kidney disease, unspecified; E03.9 Hypothyroidism, unspecified; K21.9 Gastro-esophageal reflux disease without esophagitis; M19.91 Primary osteoarthritis, unspecified site; I35.0 Nonrheumatic aortic (valve) stenosis; M85.872 Other specified disorders of bone density and structure, left ankle and foot; R53.81 Other malaise; R31.29 Other microscopic hematuria; R33.9 Retention of urine, unspecified; R32 Unspecified urinary incontinence; R80.9 Proteinuria, unspecified; Z11.52 Encounter for screening for COVID-19; Z78.1 Physical restraint status; Z74.01 Bed confinement status; Z86.711 Personal history of pulmonary embolism; Z86.718 Personal history of other venous thrombosis and embolism; Z86.16 Personal history of COVID-19; Z88.0 Allergy status to penicillin; Z91.018 Allergy to other foods; Z91.048 Other nonmedicinal substance allergy status; Z79.899 Other long term (current) drug therapy; Z79.82 Long term (current) use of aspirin
CPT/HCPCS: 0223U; 36415; 36569; 36600; 51700; 71045; 71250; 74176; 80048; 80053; 81001; 82550; 82607; 82746; 82805; 82948; 83540; 83605; 83880; 84466; 84484; 85025; 85610; 85730; 86850; 86900; 86920; 87040; 87086; 87186; 93005; 93306; 94660; 94799; 96372; 99252; 99285; J0692; J0696; J1650; J1815; J1940; J2060; J2185; J2250; J2405; J3480; J3486; J7050; P9016